=== PATIENT | male | born 1965 | race Caucasian/White ===

== ENCOUNTER 2023-02-27 09:20 | Outpatient (CLI) | payer BC, SELFPAY ==
--- NOTE | 2023-02-27 10:05 | W.ANESCHARGE ---
Anesthesia Charges Start Date/Time Anesthesia Start Date: 02/27/23 Anesthesia Start Time: 10:13 Stop Date/Time Anesthesia Stop Date: 02/27/23 Anesthesia Stop Time: 10:41
--- NOTE | 2023-02-27 10:44 | W.ANESCHARGE ---
Anesthesia Charges Start Date/Time Anesthesia Start Date: 02/27/23 Anesthesia Start Time: 10:13 Stop Date/Time Anesthesia Stop Date: 02/27/23 Anesthesia Stop Time: 10:41
== END 2023-02-27 09:21 | disposition home or self-care (01) ==
PROVIDERS: PCP Family Medicine; Visit Provider Internal Medicine Gastroenterology
DX: Z12.11 Encounter for screening for malignant neoplasm of colon (principal); K63.5 Polyp of colon
CPT/HCPCS: 00811; 45380; 45385; 88305; J2704